=== PATIENT | male | born 1950 | race Caucasian/White ===

== ENCOUNTER 2019-01-30 14:14 | Emergency (ER) | payer MEDICARE, OTHER ==
[2019-01-30] MEDS ORDERED: 0.9 % SODIUM CHLORIDE 1,000 ML BAG IV ONE (14:23)
[2019-01-30 14:37] LABS: BASO % 0.5 % (0-6); EOS % 0.6 % (0-6); GRAN % 63.7 % (47-80); HEMATOCRIT 43.2 % (42.0-52.0); HEMOGLOBIN 14.1 gm/dl (14.0-18.0); LYMPH % 25.7 % (16-45); MEAN CELL VOLUME 103.6 fl (81-97); MEAN CORPUSCULAR HEMOGLOBIN 33.8 pg (27-33); MEAN CORPUSCULAR HGB CONC 32.6 g/dl (32-36); MEAN PLATELET VOLUME 9.5 fl (7.4-10.4); MONO % 9.5 % (0-9); PLATELET COUNT 254 K/uL (130-400); RED BLOOD COUNT 4.17 M/uL (4.40-5.70); RED CELL DISTRIBUTION WIDTH 13.8 % (11.5-14.5); WHITE BLOOD COUNT W/O DIFF 7.9 K/uL (4.2-12.2)
[2019-01-30 14:50] LABS: BLOOD UREA NITROGEN 13 mg/dL (8-23); CREATININE 0.7 mg/dL (0.7-1.2); EST GLOMERULAR FILTRATION RATE > 60 mL/min; INR 1.2; PARTIAL THROMBOPLASTIN TIME 24.6 SECONDS (24.5-39.1); PROTHROMBIN TIME (PATIENT) 11.8 SECONDS (9.5-12.1)
[2019-01-30 14:53] LABS: GLUCOSE,RANDOM 114 mg/dL (74-109)
--- NOTE | 2019-01-30 15:36 | Emergency Department Record ---
History of Present Illness - General Chief complaint: Lower Extremity Pain Stated complaint: CRUSHED R LEG Time Seen by Provider: 01/30/19 14:22 Mode of Arrival: Wheelchair - History of Present Illness Initial comments: farm implement rolled on his right lef with degloving laceration of the leg. pulse presnt in his foot and ankle with good ROM of foot, neuro intact. Onset/Timin -: Minutes(s) Location: Right, Lower Leg History of Same: No Radiation: None Associated Symptoms: Denies other symptoms - Related Data Allergies Allergy/AdvReac Type Severity Reaction Status Date / Time No Known Drug Allergies Allergy Verified 01/30/19 14:27 Travel Screening - Travel/Exposure Within Last 30 Days Have you traveled within the last 30 days?: No Review of Systems Reviewed: No additional complaints except as noted below Constitutional: Reports: As per HPI. Denies: Chills, Fever, Malaise, Night sweats, Weakness, Weight change Eyes: Reports: As per HPI. Denies: Eye discharge, Eye pain, Photophobia, Vision change ENT: Reports: As per HPI. Denies: Congestion, Dental pain, Ear pain, Epistaxis , Hearing loss, Throat pain Respiratory: Reports: As per HPI. Denies: Cough, Dyspnea, Hemoptysis, Stridor, Wheezes Cardiovascular: Reports: As per HPI. Denies: Arrhythmia, Chest pain, Dyspnea on exertion, Edema, Murmurs, Orthopnea, Palpitations, Paroxysmal nocturnal dyspnea, Rheumatic Fever, Syncope Endocrine: Reports: As per HPI. Denies: Fatigue, Heat or cold intolerance, Polydipsia, Polyuria Gastrointestinal: Reports: As per HPI. Denies: Abdominal pain, Constipation, Diarrhea, Hematemesis, Hematochezia, Melena, Nausea, Vomiting Genitourinary: Reports: As per HPI. Denies: Dysuria, Frequency, Hematuria, Incontinence, Retention, Testicular pain, Testicular mass, Urgency Musculoskeletal: Reports: As per HPI, Other. Denies: Arthralgia, Back pain, Gout, Joint swelling, Myalgia, Neck pain Skin: Reports: As per HPI. Denies: Bruising, Change in color, Change in hair/ nails, Lesions, Pruritus, Rash Neurological: Reports: As per HPI. Denies: Abnormal gait, Confusion, Headache, Numbness, Paresthesias, Seizure, Tingling, Tremors, Vertigo, Weakness Psychiatric: Reports: As per HPI. Denies: Anxiety, Auditory hallucinations, Depression, Homicidal thoughts, Suicidal thoughts, Visual hallucinations Hematological/Lymphatic: Reports: As per HPI. Denies: Anemia, Blood Clots, Easy bleeding, Easy bruising, Swollen glands Past Medical History - SOCIAL HISTORY Smoking Status: Never smoker Alcohol Use: None Drug Use: None - RESPIRATORY Hx Respiratory Disorders: No - CARDIOVASCULAR Hx Cardio Disorders: Yes Hx Cardiac Cath: Yes (Sep 2005) Hx Edema: Yes (Sep 2005) Hx Hypertension: Yes Hx Irregular Heartbeat: Yes (hx of v-fib) Hx Pacemaker/Defib: Yes (Sep 2005) - NEURO Hx Neuro Disorders: No - GI Hx GI Disorders: No - Hx Genitourinary Disorders: No - ENDOCRINE Hx Endocrine Disorders: No - MUSCULOSKELETAL Hx Musculoskeletal Disorders: No - PSYCH Hx Psych Problems: No - HEMATOLOGY/ONCOLOGY Hx Hematology/Oncology Disorders: No Family Medical History Any Significant Family History?: Yes Hx Heart Disease: Mother Hx HTN: Father, Mother Hx Stroke: Mother Physical Exam - General General Appearance: Alert, Oriented x3, Cooperative, No acute distress - Head Head exam: Normal inspection - Eye Eye exam: Normal appearance, PERRL Pupils: Normal accommodation - ENT ENT exam: Normal exam, Mucous membranes moist, Normal external ear exam, Normal orophraynx, TM's normal bilaterally Ear exam: Normal external inspection. negative: External canal tenderness Nasal Exam: Normal inspection. negative: Discharge, Sinus tenderness Mouth exam: Normal external inspection, Tongue normal Teeth exam: Normal inspection. negative: Dental caries Throat exam: Normal inspection. negative: Tonsillar erythema, Tonsillar exudate - Neck Neck exam: Normal inspection, Full ROM. negative: Tenderness - Respiratory Respiratory exam: Normal lung sounds bilaterally. negative: Respiratory distress - Cardiovascular Cardiovascular Exam: Regular rate, Normal rhythm, Normal heart sounds - GI/Abdominal GI/Abdominal exam: Soft, Normal bowel sounds. negative: Tenderness - Rectal Rectal exam: Deferred - exam: Deferred - Extremities Extremities exam: Full ROM, Normal capillary refill, Tenderness - Back Back exam: Reports: Normal inspection, Full ROM. Denies: Muscle spasm, Rash noted, Tenderness - Neurological Neurological exam: Alert, Normal gait, Oriented X3, Reflexes normal - Psychiatric Psychiatric exam: Normal affect, Normal mood - Skin Skin exam: Dry, Intact, Normal color, Warm Course Vital Signs 01/30/19 14:25 Temperature 97.5 F L Pulse Rate 52 L Respiratory 20 Rate Blood Pressure 174/76 Pulse Ox 96 - Reevaluation(s) Reevaluation #1: discussed with Dr. Matos at [facility] ED and he accepted patient 01/30/19 15:37 Medical Decision Making - Data Complexity [facility] Data: Labs Ordered and/or Reviewed (hg 14.1), X-Ray Ordered and/or Reviewed (no fracture of leg) - Lab Data Result diagrams: 01/30/19 14:15 01/30/19 14:15 Lab Results 01/30/19 01/30/19 01/30/19 Range/Units 14:15 14:15 14:15 WBC 7.9 (4.2-12.2) K/uL RBC 4.17 L (4.40-5.70) M/uL Hgb 14.1 (14.0-18.0) gm/dl Hct 43.2 (42.0-52.0) % MCV 103.6 H (81-97) fl MCH 33.8 H (27-33) pg MCHC 32.6 (32-36) g/dl RDW 13.8 (11.5-14.5) % Plt Count 254 (130-400) K/uL MPV 9.5 (7.4-10.4) fl Gran % 63.7 (47-80) % Lymphocytes % 25.7 (16-45) % Monocytes % 9.5 H (0-9) % Eosinophils % 0.6 (0-6) % Basophils % 0.5 (0-6) % PT 11.8 (9.5-12.1) SECONDS INR 1.2 APTT 24.6 (24.5-39.1) SECONDS Sodium 143 (136-145) mmol/L Potassium 3.6 (3.4-4.5) mmol/L Chloride 107 (98-107) mmol/L Carbon Dioxide 25.0 (22-29) mmol/L Anion Gap 11.0 (7-16) BUN 13 (8-23) mg/dL Creatinine 0.7 (0.7-1.2) mg/dL Estimated GFR > 60 mL/min Random Glucose 114 H (74-109) mg/dL Calcium 8.6 L (8.8-10.2) mg/dL Disposition Clinical Impression: Crush injury Laceration of leg Qualifiers: Encounter type: initial encounter Laterality: right Qualified Code(s): S81.811A - Laceration without foreign body, right lower leg, initial encounter Disposition: Acute Care Hospital Transfer Condition: (2) Stable Time of Disposition: 15:30 Quality - Quality Measures Quality Measures: N/A - Blood Pressure Screening Does Patient Have Any of the Following: No, Active Dx of HTN Blood Pressure Classification: Hypertensive Reading Systolic Measurement: 174 Diastolic Measurement: 76 Screening for High Blood Pressure: Patient Exclusion, Hx of HTN [[id number]]
[2019-01-30] MEDS ORDERED: Diph,Pert(Acell),Tet Vac 0.5 ML SYR IM ONE (15:38)
[2019-01-30 15:47] LABS: ABO GROUP A; ANTIBODY SCREEN NEGATIVE (NEGATIVE); RH TYPE POSITIVE
--- NOTE | 2019-02-02 05:52 | RADIOLOGY REPORT ---
EXAM: RIGHT TIBIA AND FIBULA HISTORY: CRUSH INJURY TO THE RIGHT LOWER EXTREMITY. HEAVY FARM EQUIPMENT FELL ON THE RIGHT LOWER EXTREMITY. TECHNIQUE: AP and lateral views of the right tibia and fibula were obtained. Comparison: None. FINDINGS: There is extensive soft tissue laceration along the medial aspect of the right lower leg. A few faint calcific like foreign bodies are present within the soft tissues. The underlying bones appear intact. There is no acute fracture or dislocation. IMPRESSION: 1. EXTENSIVE SOFT TISSUE LACERATION OF THE MEDIAL ASPECT OF THE RIGHT LOWER LEG WITH A FEW TINY FAINT CALCIFIC LIKE FOREIGN BODIES. 2. NO ACUTE FRACTURE. JOB NUMBER: [id number] [facility]
--- NOTE | 2019-02-02 05:55 | RADIOLOGY REPORT ---
EXAM: CHEST, TWO VIEWS HISTORY: TRAUMA. HEAVY FARM EQUIPMENT FELL ON THE PATIENT TODAY. CRUSH INJURY TO THE RIGHT LOWER EXTREMITY. TECHNIQUE: PA and lateral upright views of the chest were obtained. Comparison: None. FINDINGS: An ICD is present. The heart is upper normal in size. The mediastinum and pulmonary vasculature are normal. The lungs are clear. There is no pneumothorax or effusion. Post surgical changes are present within the right shoulder. Degenerative changes are present within the spine and both shoulders. No acute osseous abnormalities are identified. IMPRESSION: NO ACUTE CHEST PATHOLOGY. JOB NUMBER: [id number] [facility]
== END 2019-01-30 15:50 | disposition short-term general hospital (02) ==
LOC: ER 14:14
DX: S87.81XA Crushing injury of right lower leg, initial encounter (principal); S81.811A Laceration without foreign body, right lower leg, initial encounter; R61 Generalized hyperhidrosis; W30.89XA Contact with other specified agricultural machinery, initial encounter; Y92.79 Other farm location as the place of occurrence of the external cause; I10 Essential (primary) hypertension; I25.2 Old myocardial infarction; I48.91 Unspecified atrial fibrillation; Z95.0 Presence of cardiac pacemaker
CPT/HCPCS: 71046; 80048; 85025; 85610; 85730; 86850; 86900; 86901; 90715; 96372; 99285; J7030